=== PATIENT | female | born 1990 | race Caucasian/White ===

== ENCOUNTER 2023-08-27 15:40 | Emergency (ER) | payer SELFPAY ==
[~2023-08-27] VITALS: Ht 157.5 cm; Wt 45.4 kg
[2023-08-27 16:02] VITALS: BP_SYST 131; PULSE 78; RESP 18; TEMP 97.5; O2SAT 99
[2023-08-27] MEDS: ACETAMINOPHEN 500 MG TABLET PO ONE (21:05)
[2023-08-27] MEDS: ONDANSETRON HCL 4 MG/2 ML VIAL IVP ONE (21:10)
[2023-08-27] MEDS: ONDANSETRON 4 MG ODT TAB PO ONE (21:25)
[2023-08-27 21:45] LABS: BILIRUBIN,URINE NEGATIVE (NEGATIVE); BLOOD, URINE 1+ (NEGATIVE); CLARITY/URINE CLEAR (CLEAR); COLOR,URINE YELLOW (YELLOW); GLUCOSE,URINE NEGATIVE (NEGATIVE); KETONES,URINE TRACE (NEGATIVE); LEUKOCYTE ESTERASE ,URINE NEGATIVE (NEGATIVE); NITRITE, URINE NEGATIVE (NEGATIVE); PH,URINE 6.5 (5.0-8.0); PROTEIN URINE NEGATIVE (NEGATIVE); UROBILINOGEN,URINE 0.2 (0.2-1.0)
[2023-08-27 21:54] LABS: BACTERIA,URINE RARE /HPF (None Seen); MUCUS,URINE None Seen /LPF (None Seen); WBC,URINE 0-3 /HPF (0-3)
[2023-08-27] MEDS ORDERED: ONDA-8 TL (22:10)
[2023-08-27 22:15] VITALS: BP_SYST 115; PULSE 55; RESP 16; TEMP 98.9; O2SAT 100
== END 2023-08-27 22:15 | disposition home or self-care (01) ==
LOC: SED 15:40
DX: S09.90XA Unspecified injury of head, initial encounter (principal); M54.2 Cervicalgia; R11.2 Nausea with vomiting, unspecified; Z79.899 Other long term (current) drug therapy; W18.11XA Fall from or off toilet without subsequent striking against object, initial encounter; Y93.89 Activity, other specified; Y92.091 Bathroom in other non-institutional residence as the place of occurrence of the external cause; Y99.8 Other external cause status
CPT/HCPCS: 99285; 70450; 81001; 72125; 81025; Q0162; 81000; 81015